=== PATIENT | male | born 1965 | race Caucasian/White ===

== ENCOUNTER 2024-10-03 12:20 | Emergency (ER) | payer OTHER, SELFPAY ==
--- NOTE | 2024-10-03 12:23 | ED.URI ---
HPI - URI/Sore Throat General Chief Complaint: Upper Respiratory Infection Stated Complaint: COUGH X2 WEEKS Time Seen by Provider: 10/03/24 13:03 Source: patient and RN notes reviewed Mode of arrival: ambulatory Limitations: no limitations History of Present Illness HPI Narrative: 58-year-old male presents with concern for 10 day history of persistent cough. Reports talking makes the cough worse. Reports occasional feeling of shortness of breath. Denies fever, body aches, chills, sweats. MD elicited complaint: cough Related Data Allergies Allergy/AdvReac Type Severity Reaction Status Date / Time No Known Allergies Allergy Unverified 10/03/24 12:34 Review of Systems Review of Systems: CONSTITUTIONAL: Denies malaise, chills, sweats, or fever. EYES: Denies visual changes, redness, or discharge. ENT: Denies rhinorrhea, congestion, sinus pain, otalgia and sore throat. CARDIOVASCULAR: Denies chest pain, palpitations, or edema. RESPIRATORY: Reports persistent cough. Denies dyspnea. GASTROINTESTINAL: Denies abdominal pain, nausea, vomiting, diarrhea SKIN: Denies rash or itching. MUSCULOSKELETAL: Denies myalgia. NEUROLOGIC: Denies headache. All systems reviewed & are unremarkable except as noted in HPI and below PMFSH Past Medical History Medical History (Updated 10/03/24 @ 13:12 by Allegra Hurley NP) Other fatigue Stasis dermatitis of both legs Other chronic pain Obstructive sleep apnea Localized edema FH: CAD (coronary artery disease) Chronic pain of both knees Cellulitis of right leg Social History Social History Smoking status: Never smoker Second hand tobacco smoke exposure: No Alcohol intake: current Comments At time of signature, agree with nursing past medical, surgical, social and family history. There is no relevant family history pertinent to the presenting complaint Exam Narrative: GENERAL: Well-appearing, well-nourished, and in no acute distress. HEAD: Normocephalic EYES: PERRLA, conjunctivae clear ENT: Nares clear. Mucous membranes moist. TM pearly soto with dull light reflex bilaterally; no tragal tenderness. Oropharynx not erythematous without lesions. Tonsils not enlarged and without exudate, no drooling, no hoarseness, no trismus, uvula midline. NECK: Supple. No lymphadenopathy CHEST: Clear to auscultation, breath sounds equal. No wheezing, rhonchi, rales, or stridor. No respiratory distress, speaks in full sentences. Cough noted HEART: Regular rate and rhythm. No murmur heard. SKIN: Warm, dry, no rash. NEURO: Alert and oriented x3. PSYCH: Normal mood and affect Course Course Emergency Course: Patient is aware of diagnosis, understands and agrees to treatment plan. Anticipatory guidance given. Patient agrees to follow-up as directed and is aware of reasons to seek care at the emergency department. Portions of this record may have been created with voice recognition software Level of Care: Express Care Visit Vital Signs Vital signs: Reviewed. MDM - URI/Sore Throat MDM Narrative Medical decision making narrative: Differential diagnosis considered: Cotton virus, strep pharyngitis, allergic rhinitis, upper respiratory tract infection, sinusitis, rhinosinusitis, nasopharyngitis. viral pharyngitis, otitis media, otitis externa, pneumonia, bronchitis, viral cough syndrome, viral syndrome, and influenza. Exam findings show no acute concerns or changes; patient is non-toxic appearing and is in no distress. Patient is appropriate for outpatient treatment and follow-up. Lab Data Attestation: I reviewed the patient's lab results. Critical Care Time Critical Care Time Critical Care Time: No Discharge Plan Discharge Clinical Impression: Lower respiratory tract infection Patient Disposition: Home, Self-Care Condition: Stable Instructions: Acute Bronchitis (ED) Additional Instructions: 1) Please follow-up with your primary care doctor in the next 1-2 days. 2) If you have any worsening of symptoms or any other urgent concerns please go to the ER. 3) Please take medications as prescribed and continue taking your home medications as usual. 4) Please read and follow information included in discharge instructions. Patient Language: Puerto Rican Prescriptions: New azithromycin [Zithromax Z-El] 250 mg tablet See Rx Instructions .ROUTE .COMPLEX Qty: 6 0RF Rx Instructions: take 500 mg today (day 1), then 250 mg for 4 days (days 2-5) methylprednisolone [Medrol (El)] 4 mg tablets,dose pack See Rx Instructions .ROUTE .COMPLEX Qty: 21 0RF Rx Instructions: orally per package directions Follow-up/Referrals: Rebekah Landon MD [Primary Care Provider] - Time of Disposition: 13:13
[2024-10-03 12:32] VITALS: BP 145/77; PULSE 84; RESP 20; TEMP 36.6; O2SAT 99
--- OUTSIDE RECORDS SUMMARY | 2024-10-03 13:59 | XMS_ITS | Continuity of Care Document ---
Author Organization [facility] Address [address] [place] [address] [facility] [address] [place] [address] Phone Care Team Providers Care Semiconductors Wafer Breaker Name Role Phone Margarette Donohuehil Unavailable Unavailable Procedures Procedure Date Eye Exam, New Patient Advance Directives Directive Yes / No Effective Date File Name No Information Encounters Encounter Description Practice Location Reason(s) For Visit Diagnoses Date Provider Providers Copied on Encounter [facility], [address], [place], [place], [id number], [place] tel:[phone] [facility] [place] No Information 5-[address] Jayde Madan. [address] [facility] [address], [place], [address], [place]. tel:[phone] Referring Provider: Rebekah Landon [address] [place], [address]. tel:[phone] Family History Family Member Type Diagnosis Age At Onset No Information Payers Payer name Insurance type Covered constitution party ID Authoriza tion(s) No Information Social History Type Description Quantity Date Captured Comments Sex Male Smoking Status No Information Chief Complaint And Reason For Visit No Information Reason For Referral Reason For Referral No Information History Of Present Illness Encounter Date Complaint History Of Prese nt Illness No Information Functional Status Date Functional Assessmen t No Information Instructions Date Instruction Additional Infor mation No Information Assessments Type Assessment Date No Information Patient Care Teams Name Effective Dates (start - stop) Status Members No Information
--- OUTSIDE RECORDS SUMMARY | 2024-10-03 13:59 | XMS_ITS | Referral Summary ---
Author Organization [facility] [email or web address] Address [address] [place] [address] Care Team Providers Care It Security Architect Name Role Phone Rebekah Landon MD Primary Care Provider [phone] Source Comments [email or web address],non-owned Affiliates and Associated Physician Practices is amultiple site organization consisting of ambulatory clinics and hospital sitesin [place], [place], [place] and [place]. This disclosure is being madepursuant to the Care Everywhere program and may not contain all information available regarding this patient. Last updated [email or web address] Allergies No known active allergies Medications * Be aware that medications may not be up to date on this document. Alwaysverify current medications with the patient. Medication Sig Dispensed Refills Start Date End Date Status benzonatate (TESSALON) 200 MG capsuleIndications :Nasopharyngitis acute Take 1 capsule by mouth 3 times daily as needed for Cough 30 capsule 09/08/2017 Active Additional Information Patient not taking.Reported on 05/30/2019 Social History Tobacco Use Types Packs/Day Years Used Date Smoking Tobacco: Never Smokeless Tobacco: Never PHQ-2 Answer Date Recorded PHQ2 TOTAL SCORE 0 12/12/2020 Sex and Gender Information Value Date Recorded Sex Assigned at Not on file Gender Identity Not on file Sexual Orientation Not on file Last Filed Vital Signs Vital Sign Reading Time Taken Comments Blood Pressure 140/88 12/12/2020 5:05 PM CDT Pulse 76 12/12/2020 5:05 PM CDT Temperature 37 C (98.6 F) 12/12/2020 5:05 PM CDT Respiratory Rate 16 12/12/2020 5:05 PM CDT Oxygen Saturation 98% 12/12/2020 5:05 PM CDT Inhaled Oxygen Concentration - - Weight 106.6 kg (235 lb) 12/12/2020 5:05 PM CDT Height 182.9 cm (6') 12/12/2020 5:05 PM CDT Body Mass Index 31.87 12/12/2020 5:05 PM CDT Plan of Treatment Not on file Care Teams It Security Architect Relationship Specialty Start Date End Date Rebekah Landon MD [address] [place] [address] PCP - General Family Medicine 07/31/16
--- OUTSIDE RECORDS SUMMARY | 2024-10-03 13:59 | XMS_ITS | Clinical Summary ---
Author Organization [facility] [employer] Address [address] [place] [place] [address] Care Team Providers Care Chassis Engineer Name Role Phone Rebekha Landon MD Primary Care Provider [phone] Source Comments [employer]non-owned Affiliates and Associated Physician Practices is amultiple site organization consisting of ambulatory clinics and hospital sitesin [place], [place], [place] and [place]. This disclosure is being madepursuant to the Care Everywhere program and may not contain all information available regarding this patient. Last updated 18.[employer] Allergies No known active allergies Medications * [...] Additional Information Patient not taking.Reported on 05/30/2019 Family History Relation Name Status Comments Father Mother Social History Tobacco Use Types Packs/Day Years [...] 12/12/2020 5:05 PM CDT Plan of Treatment Health Maintenance Due Date Last Done Comments COLOGUARD (AGES 45-75) - COLON CA SCREENING 1966 COLON MONITORING 1966 COLONOSCOPY - COLON CA SCREENING 1966 CT COLONOGRAPHY - COLON CA SCREENING 1966 Colorectal Cancer Screening 1966 FIT - COLON CA SCREENING 1966 FLEX SIG - COLON CA SCREENING 1966 LIPID TESTING 1966 HIV SCREENING 1981 HEPATITIS C SCREENING 10/24/1984 DTAP/TDAP/TD VACCINES (1 - Tdap) 1985 HEPATITIS B VACCINE (1 of 3 - 19+ 3-dose series) 1985 PNEUMOCOCCAL VACCINE 50+ (1 of 1 - PCV) 2016 ZOSTER VACCINE (1 of 2) 2016 SCREENING FOR DIABETES 12/12/2020 COVID-19 VACCINE ( season) 2024 10/20/2020, 10/20/2020, 09/22/2020, Additional history exists INFLUENZA VACCINE (#1) 2024 DEPRESSION SCREENING 08/10/2024 HIB VACCINE Aged Out No longer eligi ble based on patient's age to complete this topic HPV VACCINE Aged Out No longer eligi ble based on patient's age to complete this topic MENINGOCOCCAL (Group B) VACCINE Aged Out No longer eligible based on patient's age to complete this topic MENINGOCOCCAL VACCINE Aged Out No irene amaya eligible based on patient's age to complete this topic PNEUMOCOCCAL VACCINE Aged Out No long er eligible based on patient's age to complete this topic Care Teams Chassis Engineer Relationship Specialty Start Date End Date Rebekah Landon MD [address] [place] [address] PCP - General Family Medicine 07/31/16
--- OUTSIDE RECORDS SUMMARY | 2024-10-03 13:59 | XMS_ITS | Patient Health Summary ---
Author Organization [facility] [employer] Address [address] [place] [address] Care Team Providers Care Hospitality Services Manager Name Role Phone Rebekah Landon MD Primary Care Provider [phone] Note from [facility],non-owned Affiliates and Associated Physician Practices is amultiple site organization consisting of ambulatory clinics and hospital sitesin [place], [place], [place] and [place]. This disclosure is being madepursuant to the Care Everywhere program and may not contain all information available regarding this patient. Last updated 18.[facility] Allergies No known active allergies Medications * Be aware that medications may not be up to date on this document. Alwaysverify current medications with the patient. * benzonatate (TESSALON) 200 MG capsule(Started 09/08/2017) Take 1 capsule by mouth 3 times daily as needed for Cough Social History Tobacco Use Types Packs/Day Years [...] Mass Index 31.87 12/12/2020 5:05 PM CDT Procedures * STREP A SCREEN - POINT OF CARE (AMB) STL(Performed 09/08/2017) Performed for Nasopharyngitis acute * INFLUENZA A+B - POINT OF CARE (AMB)(Performed 09/08/2017) Performed for Nasopharyngitis acute * INFLUENZA A+B - POINT OF CARE (AMB)(Performed 08/21/2016) Performed for Influenza * INFLUENZA A+B - POINT OF CARE (AMB)(Performed 07/31/2016) Performed for Acute nasopharyngitis * STREP A SCREEN - POINT OF CARE (AMB) STL(Performed 07/31/2016) Performed for Acute nasopharyngitis Results * STREP A SCREEN - POINT OF CARE (AMB) STL (09/08/2017 10:53 AM HEAD LIBRARIAN) Only the most recent of2 resultswithin the time period is included. Strep A Rapid POCT Negative Negative Strep A Internal Control Present Lot # [id number] Expiration Date 04 16 2019 Throat ENTIRE THROAT (SURFACE REGION OF NECK) / Unknown 09/08/2017 10:53 AM HEAD LIBRARIAN [facility] POINT OF CA RE ORDERABLES * INFLUENZA A+B - POINT OF CARE (AMB) (09/08/2017 10:53 AM HEAD LIBRARIAN) Only the most recent of3 resultswithin the time period is included. Influenza A Antigen Rapid Negative Negative Influenza B Antigen Rapid Negative Negative Influenza Internal Control present NEGATIVE - POSITIVE Influenza Lot Number [id number] Influenza Expiration Date 06 01 2019 Other NASOPHARYNGEAL SWAB / Unknown 09/08/2017 10:53 AM HEAD LIBRARIAN Aftab [facility] POINT OF CA RE ORDERABLES Care Teams Hospitality Services Manager Relationship Specialty Start Date End Date Rebekah Landon MD [address] [place] [address] PCP - General Family Medicine 07/31/16
--- OUTSIDE RECORDS SUMMARY | 2024-10-03 14:02 | XMS_ITS | Continuity of Care Document ---
Author Organization [facility] Address [address] [place] [address] [facility] [address] [place] [address] Phone Care Team Providers Care Data Report Analyst Name Role Phone Margarette Donohuehil Unavailable Unavailable Procedures Procedure Date Eye Exam, New Patient Advance Directives Directive Yes / No Effective Date File Name No Information Encounters Encounter Description Practice Location Reason(s) For Visit Diagnoses Date Provider Providers Copied on Encounter [facility], [address], [place], [place], [id number], [place] tel:[phone] [facility] No Information 5-[address] Jayde Madan. [address] [facility] [address], [place], [address], [place]. tel:[phone] Referring Provider: Rebekah Landon [address] [place], [address]. tel:[phone] Family History Family Member Type Diagnosis Age At Onset No Information Payers Payer name Insurance type Covered alliance party ID Authoriza tion(s) No Information Social [...]
== END 2024-10-03 13:19 | disposition home or self-care (01) ==
PROVIDERS: Emergency Provider Nurse Practitioner; PCP Family Medicine
DX: J22 Unspecified acute lower respiratory infection (principal)
CPT/HCPCS: 99213; G0463